=== PATIENT | male | born 1980 | race Caucasian/White ===

== ENCOUNTER → 2016-07-09 | Outpatient (REF) | payer BC | LOC: M SFHCLACO 10:26 | PROVIDERS: ATTEND Physician Assistant | DX: Z53.8 Procedure and treatment not carried out for other reasons (principal); F41.1 Generalized anxiety disorder ==

== ENCOUNTER → 2016-07-11 | Outpatient (CLI) | payer BC ==
--- NOTE | 2016-07-12 05:00 | REP ---
Clinical: Palpable mass. Technique: Real-time wilks scale ultrasound using linear high frequency transducer. Findings: Ultrasound examination directed to the area of interest along the left flank demonstrates a 16 x 10 x 9mm and 11 x 14 x 8mm echogenic subcutaneous lesions likely representing lipomas. Impression: Palpable masses likely represents benign lipomas. Signed by Alen Lilly MD 07/12/2016 04:52 A
== END ==
LOC: M RAD 12:57
PROVIDERS: ATTEND Physician Assistant
DX: R22.9 Localized swelling, mass and lump, unspecified (principal)